=== PATIENT | female | born 1935 ===

== ENCOUNTER 2018-03-02 23:34 | Emergency (ER) | payer MEDICARE, MEDICAID ==
[2018-03-02 23:35] VITALS: BMI 46.0
[2018-03-02 23:49] VITALS: BP 146/77; PULSE 84; RESP 18; TEMP 98.5; O2SAT 97
--- NOTE | 2018-03-03 00:19 | ED PDOC ---
HPI: Head Injury History Per: Family Additional History Per: Family Additional Complaint(s): History obtained from patients daughter. 83 year old female patient with hx of dementia, HTN, DM presents after mechanical fall w/ head injury. Fall was witnessed by the daughter, no LOC. She was attempting to stand up from sitting in chair, while holding on to chair that was in front of her when she lost her balance and hit her head. The patient denies pain at present, no diziness, no blurry vision, daughter reports she is poor historian and unable to give proper history. No other complaints offered. PMD: Dr. Heck <Celso Pugh - Last Filed: 03/03/18 02:37> <Luca Del Toro - Last Filed: 03/03/18 06:03> Time Seen by Provider: 03/02/18 23:51 Chief Complaint (Nursing): Headache Supervising Attending Note - Supervising Attending Note The Documented history was done by the: Physician Horticultural Farmer The documented physical exam was done by the: Physician Horticultural Farmer - Attestation: I have personally seen and examined this patient.: Yes I have fully participated in the care of the patient.: Yes I have reviewed all pertinent clinical information, including history, physical exam and plan: Yes <Luca Del Toro - Last Filed: 03/03/18 06:03> Past Medical History Vital Signs: Last Vital Signs Temp 98.5 F 03/02/18 23:45 Pulse 84 03/02/18 23:45 Resp 03/02/18 23:45 BP 146/77 03/02/18 23:45 Pulse Ox 97 03/02/18 23:45 - Medical History PMH: Arthritis, CHF, Dementia, Diabetes, Diverticulitis, HTN, Chronic Kidney Disease, TIA Denies: COPD, Hypercholesterolemia, Hypothyroidism, Rheumatoid Arthritis - Surgical History Surgical History: Appendectomy, Cholecystectomy, Endoscopy, Tonsillectomy - Family History Family History: States: Unknown Family Hx <Celso Pugh - Last Filed: 03/03/18 02:37> Vital Signs: Last Vital Signs Temp 98.5 F 03/02/18 23:45 Pulse 84 03/02/18 23:45 Resp 18 03/02/18 23:45 BP 146/77 03/02/18 23:45 Pulse Ox 97 05/28/18 02:38 <AlvertoLuca Cruz - Last Filed: 03/03/18 06:03> - Home Medications Home Medications: Ambulatory Orders Medication Instructions Recorded Bimatoprost [Lumigan] 1 drop EACHEYE HS 10/06/14 Fluticasone Nasal [Flonase] 2 spray KAIN DAILY PRN 10/06/14 Rivastigmine 9.5 mg/24 hr [Exelon 1 patch TOP DAILY 10/06/14 9.5 mg/24 hr Patch] amLODIPine [Norvasc] 2.5 mg PO DAILY 10/06/14 Ca Pantothenate/Folic Acid/V [Once 1 tab PO DAILY 04/26/15 Daily Multi-Vitamin] Famotidine [Pepcid] 20 mg PO BID 05/02/15 GlipiZIDE [Glucotrol] 10 mg PO DAILY 05/25/15 Ciprofloxacin [Cipro] 500 mg PO 06/09/15 Metronidazole [Flagyl] 500 mg PO BID 06/09/15 - Allergies Allergies/Adverse Reactions: Allergies Allergy/AdvReac Type Severity Reaction Status Date / Time No Known Allergies Allergy Verified 03/02/18 23:49 Review of Systems Constitutional: Negative for: Fever, Chills, Sweats Eyes: Negative for: Vision Change ENT: Negative for: Nose Congestion Cardiovascular: Negative for: Chest Pain, Palpitations, Orthopnea, Edema Respiratory: Negative for: Cough, Shortness of Breath Gastrointestinal: Negative for: Nausea, Vomiting, Abdominal Pain Musculoskeletal: Negative for: Leg Pain Skin: Negative for: Rash Neurological: Positive for: Confusion (dementia). Negative for: Weakness, Headache <Celso Pugh - Last Filed: 03/03/18 02:37> Physical Exam - Physical Exam Appears: Positive for: Well, Non-toxic, No Acute Distress Head Exam: Positive for: NORMOCEPHALIC (left frontal hematoma approx 3x4 cm) Skin: Negative for: Normal Color, Warm, Dry Eye Exam: Negative for: Normal appearance, Conjunctival injection Neck: Positive for: Normal, Painless ROM Cardiovascular/Chest: Positive for: Regular Rate, Rhythm, Murmur. Negative for : Edema, Bradycardia, Tachycardia Respiratory: Positive for: Normal Breath Sounds. Negative for: Wheezing, Respiratory Distress Gastrointestinal/Abdominal: Positive for: Normal Exam, Soft. Negative for: Bowel Sounds, Tenderness Extremity: Negative for: Tenderness, Pedal Edema, Swelling Neurologic/Psych: Positive for: Alert <Celso Pugh - Last Filed: 03/03/18 02:37> - Laboratory Results Result Diagrams: 03/03/18 00:15 03/03/18 00:15 - ECG O2 Sat by Pulse Oximetry: 97 - Progress ED Course And Treament: 83 year old female with dementia s/p mechanical fall with head injury without LOC. --CT head w/o contrast --CBC --CMP --ACCUCHECK --EKG --Tylenol 650 mg PO Case d/w Dr. Del Toro CT head reviewed: FINDINGS: Brain: Moderate atrophy. No intracranial hemorrhage. Lipoma of corpus callosum. Multiple scattered foci of decreased attenuation within periventricular/subcortical white matter. No edema. Ventricles: No hydrocephalus. Bones/joints: No acute fracture. Calvarial osteoma. Soft tissues: LEFT frontal soft tissue swelling. Vasculature: Atherosclerotic disease of intracranial arteries. Sinuses: No acute sinusitis. Mastoid air cells: No mastoid effusion. Orbits: Unremarkable as visualized. IMPRESSION: 1. No intracranial hemorrhage. 2. Nonspecific white matter changes. 3. Incidental/non-acute findings are described above. Labs remarkable for : WBC: 13.9, Glucose 142 <Celso Pugh - Last Filed: 03/03/18 02:37> - Laboratory Results Result Diagrams: 03/03/18 00:15 03/03/18 00:15 <Luca Del Toro - Last Filed: 03/03/18 06:03> Disposition - Disposition Disposition: Routine/Home Disposition Time: 02:38 <Celso Pugh - Last Filed: 03/03/18 02:37> <Luca Del Toro - Last Filed: 03/03/18 06:03> - Clinical Impression Clinical Impression: Traumatic hematoma of forehead - Disposition Condition: STABLE Instructions: Contusion (DC) Forms: [facility] (Spanish) Print Language: DANISH
--- NOTE | 2018-03-03 00:36 | CT ---
EXAM: CT Head Without Intravenous Contrast CLINICAL HISTORY: 83 years old, female; Injury or trauma; Fall; Initial encounter; Abrasion; Forehead; Patient HX: No prior report; Additional info: Head trauma TECHNIQUE: Axial computed tomography images of the head/brain without intravenous contrast. All CT scans at this facility use one or more dose reduction techniques, viz.: automated exposure control; ma/kV adjustment per patient size (including targeted exams where dose is matched to indication; i.e. head); or iterative reconstruction technique. Coronal and sagittal reformatted images were created and reviewed. COMPARISON: CT HEAD OR BRAIN W/O CONT 2012-06-05 13:18 FINDINGS: Brain: Moderate atrophy. No intracranial hemorrhage. Lipoma of corpus callosum. Multiple scattered foci of decreased attenuation within periventricular/subcortical white matter. No edema. Ventricles: No hydrocephalus. Bones/joints: No acute fracture. Calvarial osteoma. Soft tissues: LEFT frontal soft tissue swelling. Vasculature: Atherosclerotic disease of intracranial arteries. Sinuses: No acute sinusitis. Mastoid air cells: No mastoid effusion. Orbits: Unremarkable as visualized. IMPRESSION: 1. No intracranial hemorrhage. 2. Nonspecific white matter changes. 3. Incidental/non-acute findings are described above.
[2018-03-03 00:55] LABS: BASO # 0.1 K/uL (0.0-0.2); BASO % 0.6 % (0.0-2.0); EOS % 0.1 % (0.0-4.0); HEMOGLOBIN 14.1 g/dL (12.0-16.0); LYMPH # 1.7 K/uL (1.0-4.3); LYMPH % 12.5 % (20.0-40.0); MEAN CELL VOLUME 95.7 fl (81.0-99.0); MEAN CORPUSCULAR HEMOGLOBIN 32.6 pg (27.0-31.0); MONO # 0.6 K/uL (0.0-0.8); MONO % 4.2 % (0.0-10.0); NEUT # 11.5 K/uL (1.8-7.0); NEUT % 82.6 % (50.0-75.0); NRBC % 0.2 % (0.0-0.0); RBC 4.33 Mil/uL (3.80-5.20); RED CELL DISTRIBUTION WIDTH 13.1 % (11.5-14.5); WHITE BLOOD COUNT 13.9 K/uL (4.8-10.8)
[2018-03-03 01:02] LABS: CALCIUM 9.3 mg/dL (8.4-10.2); GFR AFRICAN-AMERICAN > 60; GFR NON-AFRICAN AMERICAN > 60
[2018-03-03 01:11] LABS: BLOOD UREA NITROGEN 14 mg/dl (7-17)
--- NOTE | 2018-03-04 08:46 | CARD ---
APPROVED REPORT EKG Measurement Heart [id number] <Conclusion> Normal sinus rhythm Normal ECG
== END 2018-03-03 03:10 | disposition home or self-care (01) ==
LOC: H.ER 23:34
DX: S00.83XA Contusion of other part of head, initial encounter (principal); W19.XXXA Unspecified fall, initial encounter; Y92.89 Other specified places as the place of occurrence of the external cause; F03.90 Unspecified dementia, unspecified severity, without behavioral disturbance, psychotic disturbance, mood disturbance, and anxiety; E11.22 Type 2 diabetes mellitus with diabetic chronic kidney disease; I13.0 Hypertensive heart and chronic kidney disease with heart failure and stage 1 through stage 4 chronic kidney disease, or unspecified chronic kidney disease; I50.9 Heart failure, unspecified; Z79.84 Long term (current) use of oral hypoglycemic drugs; Z86.73 Personal history of transient ischemic attack (TIA), and cerebral infarction without residual deficits